=== PATIENT | female | born 1985 | race Caucasian/White ===

== ENCOUNTER 2016-10-19 15:32 | Emergency (ER) | payer SELFPAY ==
[2016-10-19 15:39] VITALS: RESP 16
[2016-10-19] MEDS ORDERED: IBUPROFEN 600 MG TAB PO ONE ×2 (15:48→15:51)
--- NOTE | 2016-10-19 16:23 | EDPHY ---
H & P Time Seen by Provider: 10/19/16 15:41 HPI/ROS: CHIEF COMPLAINT: left wrist pain HISTORY OF PRESENT ILLNESS: 22-year-old female presents emergency department complaining of left wrist pain. Patient fell on outstretched left hand while snowboarding today. She is [id number]. She had immediate pain in this left wrist. She denies head strike, no neck pain, she reports paresthesias in her fingers intermittently. Patient reports she has pain that radiates up her arm. She denies elbow pain. Smoking Status: Never smoked Physical Exam: GEN: Awake, alert, oriented, no acute distress RESP: nl resp effort MSK: No cervical spine tenderness, left wrist with swelling, tenderness to palpation over distal radius, no ulnar styloid tenderness, tenderness over 3rd metacarpal, no elbow tenderness, 2+ radial pulses, sensation intact to light touch, cap refill less than 2 seconds SKIN: no break in skin Constitutional: Initial Vital Signs Heart Rate 76 10/19/16 15:36 Respiratory Rate 16 10/19/16 15:36 Blood Pressure 131/74 H 10/19/16 15:36 O2 Sat (%) 96 10/19/16 15:36 O2 Delivery Mode Room Air Allergies/Adverse Reactions: hydrocodone Allergy (Verified 10/19/16 15:36) MDM/Departure - MDM Diagnostics: Left wrist x-ray independently reviewed by me- Distal radius fracture Left hand x-ray independently reviewed by me- No fracture Procedures: A volar Ortho Glass wrist splint was applied. After application of the splint , I returned and re-examined the patient. The splint was adequately immobilizing the joint. The patients circulation and sensation were intact distal to the splint. Medications Given: Discontinued Medications Ibuprofen (Motrin) 600 mg PO EDNOW ONE Stop: 10/19/16 15:52 Last Admin: 10/19/16 15:53 Dose: 600 mg ED Course/Re-evaluation: Patient is declining any narcotic pain medication. She does not wish to go home with a prescription for pain medication. I have recommended alternating Tylenol with ibuprofen, elevation and ice. - Depart Disposition: Home, Routine, Self-Care Clinical Impression: Distal radius fracture, left Qualifiers: Encounter type: initial encounter Fracture type: closed Fracture morphology: unspecified fracture morphology Qualifier Code: (S52.502A) Unspecified fracture of the lower end of left radius, initial encounter for closed fracture Condition: Good Instructions: Wrist Fracture in Adults (ED) Additional Instructions: Rest, ice, elevate, take 600mg of ibuprofen every 8 hours with food for 3-5 days as needed for pain and swelling. Take 650 mg of Tylenol every 8 hours, you can alternate these every 4 hours. Call the orthopedist to schedule an appointment to be seen in the next 5-7 days. Return to the emergency department for any numbness, tingling, discoloration of you limb or other concerns. Referrals: Mitch Rea MD [Medical Doctor] - As per Instructions (Orthopedist on-call)
--- NOTE | 2016-10-19 16:27 | DX ---
Left Hand, Three Views History: Fall snowboarding. Comparison: Wrist the same day. Findings: A transverse fracture of the distal radius is more conspicuous on the wrist view from the same day. Alignment is normal. Bone mineralization is normal. There is no significant degenerative change. Impression: Limited visualization of a transverse fracture of the distal radius.
--- NOTE | 2016-10-19 16:30 | DX ---
Left Wrist, Three Views History: Snowboarding accident, pain. Comparison: Left hand the same day. Findings: There is a nondisplaced transverse fracture of the distal radial metaphysis, with a probab le nondisplaced vertical component that extends toward the joint space with likely intraarticular ext ension, best seen on the PA view. Alignment is normal. Bone mineralization is normal. There is no significant degenerative change. Impression: Nondisplaced distal radius fracture, with probable intraarticular extension.
[2016-10-19 16:52] VITALS: BP 118/78; PULSE 70; TEMP 97.5; O2SAT 94
== END 2016-10-19 16:56 | disposition home or self-care (01) ==
DX: S52.502A Unspecified fracture of the lower end of left radius, initial encounter for closed fracture (principal); V00.311A Fall from snowboard, initial encounter; Y93.23 Activity, snow (alpine) (downhill) skiing, snowboarding, sledding, tobogganing and snow tubing
CPT/HCPCS: A4565